=== PATIENT | female | born 1950 | race American Indian/Alaskan Native ===

== ENCOUNTER 2017-04-14 13:43 | Emergency (ER) | payer MEDICARE ==
[2017-04-14 16:19] VITALS: BP 168/71
== END 2017-04-15 05:17 | disposition left against medical advice (07) ==
LOC: ED 13:43
DX: Z53.21 Procedure and treatment not carried out due to patient leaving prior to being seen by health care provider (principal)

== ENCOUNTER 2018-09-24 09:28 | Day surgery (SDC) | payer MEDICARE ==
[~2018-09-24 09:28] MED LIST: ANCEF/STERILE WATER 2 GM/20 ML 2 GM/20 ML SYRINGE IV SCH; ceFAZolin 2 GM in NACL 0.9% 100 ML IV ONE
[2018-09-24] MEDS ORDERED: VERSED ONE (10:49)
[2018-09-24] MEDS ORDERED: NEURONTIN ONE (10:49)
[2018-09-24] MEDS ORDERED: LACTATED RINGERS 1,000 ML IV SCH (11:00)
[2018-09-24] MEDS ORDERED: DECADRON ONE (11:58)
[2018-09-24] MEDS ORDERED: ZEMURON IV ONE (11:58)
[2018-09-24] MEDS ORDERED: DIPRIVAN 10 MG/ML IV ONE (11:58)
[2018-09-24] MEDS ORDERED: ZOFRAN ONE (11:58)
[2018-09-24] MEDS ORDERED: XYLOCAINE CARDIAC IV ONE (11:58)
[2018-09-24] MEDS ORDERED: SUBLIMAZE ONE (12:07)
[2018-09-24] MEDS ORDERED: XYLOCAINE 1% 20 mL ONE (12:18)
[2018-09-24] MEDS ORDERED: MARCAINE 0.5% INFILTRATI ONE ×2 (12:18→13:20)
[2018-09-24] MEDS ORDERED: ROBINUL ONE ×2 (12:58→13:55)
[2018-09-24] MEDS ORDERED: XYLOCAINE 1% 20 mL INFILTRATI ONE (13:20)
[2018-09-24] MEDS ORDERED: WATER FOR IRRIG STERILE IR ONE (13:22)
[2018-09-24] MEDS ORDERED: BLOXIVERZ ONE (13:55)
--- NOTE | 2018-09-24 14:19 | Short Stay Summary ---
Short Stay Documentation Date of service: 09/24/18 - History Principal diagnosis: symptomatic cholelithiasis, hx pancreatitis H&P: obtained from office - Allergies and Medications Current Medications: Allergies No Known Allergies Allergy (Verified 09/16/18 10:27) Home Medications Medication Instructions Recorded Confirmed Last Taken Type Atorvastatin Calcium [Lipitor] 10 mg PO DAILY 09/16/18 09/16/18 09/23/18 History Clopidogrel Bisulfate [Clopidogrel] 75 mg PO DAILY 09/16/18 09/24/18 09/10/18 History Ferrous Sulfate [Feosol] 325 mg PO QDAY 09/16/18 09/16/18 09/23/18 History Lisinopril/Hydrochlorothiazide 1 each PO DAILY 09/16/18 09/24/18 09/24/18 07:00 History [Zestoretic 10-12.5 mg Tablet] Meloxicam 15 mg PO DAILY 09/16/18 09/16/18 09/23/18 History amLODIPine [Norvasc] 10 mg PO DAILY 09/16/18 09/16/18 09/23/18 History glipiZIDE [glipiZIDE XL] 10 mg PO DAILY 09/16/18 09/16/18 09/23/18 History Active Medications Cefazolin Sodium (Ancef/Sterile Water 2 Gm/20 Ml) 2 gm in 20 mls @ 60 mls/hr IV PREOP ILENE Stop: 09/24/18 23:59 Lactated Ringer's (Lactated Ringers) 1,000 mls @ 100 mls/hr IV DIRECT ILENE Last Admin: 09/24/18 11:10 Dose: 100 mls/hr Documented by: - Brief post op/procedure progress note Date of procedure: 09/24/18 Pre-op diagnosis: calculus of the gallbladder without cholecystitis or obstruction Post-op diagnosis: same Procedure: robotic assisted cholecystectomy Anesthesia: GETA, local Findings: cholelithiasis, adhesions from omentum to gallbladder Surgeon: EMIL GAVIN Estimated blood loss: minimal Pathology: list (gallbladder) Specimen disposition: to lab Condition: stable - Hospital course Hospital course: Pt observed in PACU and discharged to home in stable condition when criteria met - Disposition Condition at discharge: Good Disposition: DC-01 TO HOME OR SELFCARE Short Stay Discharge Plan Activity: other (no driving if taking prescription pain medications, no heavy lifting) Diet: low fat Wound: open to air Additional Instructions: SEE PRINTED DISCHARGE INSTRUCTIONS RESUME PLAVIX IN 2 DAYS Follow up with: EDILIA EVANS MD [Primary Care Provider] - 7 Days EMIL GAVIN DO [Staff Physician] - 14 Days Prescriptions: HYDROcodone/APAP 5-325 [[place] 5/325] 1 each PO Q6HR PRN #20 tablet PRN Reason: Pain
[2018-09-24 16:44] VITALS: BP 142/75
--- NOTE | 2018-09-24 17:39 | Operative Report ---
PREOPERATIVE DIAGNOSIS: Calculus of gallbladder without cholecystitis without obstruction. POSTOPERATIVE DIAGNOSIS: Calculus of gallbladder without cholecystitis without obstruction. PROCEDURE: Robotic-assisted cholecystectomy. ANESTHESIA: General endotracheal anesthesia, local. FINDINGS: Cholelithiasis, adhesions from omentum to gallbladder. SURGEON: Smitha Mendes DO ESTIMATED BLOOD LOSS: Minimal. PATHOLOGY: Gallbladder. SPECIMEN DISPOSITION: To lab. CONDITION: Stable. HISTORY OF PRESENT ILLNESS AND INDICATION: The patient is a 68-year-old female, who presented to the surgery office as a referral from Gastroenterology for evaluation of gallstones. The patient had been complaining of intermittent right upper quadrant and epigastric abdominal pain for many years. She had been hospitalized in the past for pancreatitis secondary to gallstones; however, the gallbladder was not addressed. The patient has had a negative GI workup thus far and is only remarkable for gallstones. Therefore, cholecystectomy was recommended. All risks, benefits, alternatives of surgery were discussed with the patient and questions answered. The robotic, laparoscopic, open approaches were all discussed. Consent was obtained. PROCEDURE IN DETAIL: The patient was identified in the preoperative area, taken back to the operating room and placed on the operating table in supine position. After anesthesia was induced, bilateral arms were tucked with all bony prominences padded appropriately. Abdomen was then prepped and draped in the usual sterile fashion. Timeout was performed. Local anesthetic was infiltrated into all skin incision sites. A 12 mm incision was made superior to the umbilicus through which a Veress needle was inserted. The Veress needle positioning was confirmed using the saline drop test. The abdomen was then insufflated to 50 mmHg. Once the abdomen was insufflated, the Veress needle was removed and a 12 mm Optiview balloon trocar was placed through this incision. The abdomen was inspected. There was no underlying injury to any of the abdominal structures. The patient was placed in reverse Trendelenburg and tilted to the left. The gallbladder was visualized in the right upper quadrant. An additional 8 mm left upper quadrant robotic trocar was placed under direct visualization. The gallbladder was grasped and there were adhesions from the omentum to the gallbladder visualized. The two additional 8 mm robotic trocars were then placed in the right mid and right lateral abdomen. This was done under direct visualization. A Ray-Elda was placed through the 12 mm port into the abdomen. The robot was then docked. The camera was installed and a Maryland was placed in arm #1, a Cadiere grasper in arm #2 and ProGrasp in arm #3. All instruments were advanced under direct visualization. The surgeon was then transferred to the console. The gallbladder was grasped by the fundus and lifted cephalad. The omental adhesions to the gallbladder were taken down using electrocautery. Once all of the adhesions were taken down, the neck of the gallbladder was visualized. The infundibulum of the gallbladder was grasped and retracted laterally. Cystic duct and artery were then carefully skeletonized using the Maryland dissector. The lateral and medial peritoneal reflections of the gallbladder were also dissected using robotic monopolar scissors. Once the critical view of safety was obtained and the cystic artery and duct were seen at the only two structures entering the gallbladder, the Hem-o-yessi clips were placed on both structures. Two clips were placed on the proximal aspect of the cystic duct and cystic artery respectively and 1 distally on cystic artery and cystic duct respectively. Both structures were transected in between the clips using robotic scissors. Gallbladder was then dissected off the liver bed using robotic monopolar scissors. The gallbladder was placed in the right upper quadrant and the gallbladder fossa was inspected for hemostasis. Hemostasis was achieved using electrocautery. The clips were visualized and intact. There was no bleeding or bile leakage. The robot was then undocked and the surgeon scrubbed back in. The remainder of the procedure was performed laparoscopically. The gallbladder was placed into an EndoCatch bag and removed through the 12 mm port. The Ray-Elda was also removed from the abdomen via the 12 mm port. The gallbladder fossa was once again visualized after the patient was placed into neutral position and there was no bleeding or bile leakage in this area. The 12 mm port fascia was closed with interrupted 0 vicryl suture using the Delmar Gil device. The remaining ports were then removed under direct visualization and the abdomen desufflated. The skin was once again infiltrated with local anesthetic and the skin incisions closed with 4-0 Monocryl subcuticular stitches and skin glue. The gallbladder was examined on the back table and there was dark red backbleeding from the cystic artery stump and there was bile coming from the cystic duct. The cystic duct with only tubular structure seen entering the gallbladder. There were stones and bile in the gallbladder. At the end of the case, all sponge, instrument and sharp counts were correct x 2. The patient was awoken from anesthesia, extubated, and taken to PACU in stable condition. JOB# [id number] VELIA/CHELSEY CERVANTES
== END 2018-09-24 16:45 | disposition home or self-care (01) ==
LOC: OR 09:28
PROVIDERS: ATTEND Surgery
DX: K80.10 Calculus of gallbladder with chronic cholecystitis without obstruction (principal); I25.10 Atherosclerotic heart disease of native coronary artery without angina pectoris; E78.00 Pure hypercholesterolemia, unspecified; I10 Essential (primary) hypertension; E11.51 Type 2 diabetes mellitus with diabetic peripheral angiopathy without gangrene; E78.5 Hyperlipidemia, unspecified; Z80.1 Family history of malignant neoplasm of trachea, bronchus and lung; Z98.890 Other specified postprocedural states; Z79.899 Other long term (current) drug therapy; Z79.01 Long term (current) use of anticoagulants; Z90.710 Acquired absence of both cervix and uterus; Z98.891 History of uterine scar from previous surgery
CPT/HCPCS: 36415; 47562; 82962; 84132; 88304; 93005; 93010; J0690; J1100; J2001; J2250; J2405; J2704; J2710; J3010; J7120

== ENCOUNTER 2019-04-26 09:34 | Outpatient (CLI) | payer MEDICARE ==
--- NOTE | 2019-04-28 11:30 | Mammography Report ---
DIGITAL SCREENING MAMMOGRAM WITH CAD, 04/26/2019 INDICATION: Routine screening mammography. TECHNIQUE: Digital bilateral 2D mammography was obtained in the craniocaudal and mediolateral obliq ue projections. This examination was interpreted with the benefit of Computer-Aided Detection analysi s. COMPARISON: 07/01/2013 FINDINGS: Breast Density: The breasts are almost entirely fatty. There is no evidence of dominant mass, suspicious calcifications or architectural distortion in eithe r breast. IMPRESSION: No mammographic evidence of malignancy. Follow up recommendation: Routine yearly BI-RADS Category 1: Negative. A "normal" or negative report should not discourage follow up or biopsy of a clinically significant f inding. A written summary of these findings will be mailed to the patient. The patient will be entered into a mammography reporting system which will generate a reminder letter for the patient's next appointmen t at the appropriate interval. The [employer] recommends yearly mammograms starting at age 40 and continuing as l dev as a woman is in good health. Breast MRI is recommended for women with an approximate 20-25% or greater lifetime risk of breast cancer, including women with a strong family history of breast or ova beto cancer or who have been treated for Hodgkin's disease. Signer Name: Rafael Cross MD Signed: 04/28/2019 11:26 AM Workstation Name: [id number]
== END 2019-04-26 09:35 | disposition home or self-care (01) ==
LOC: MAMMO 09:34
PROVIDERS: ATTEND Family Medicine
DX: Z12.31 Encounter for screening mammogram for malignant neoplasm of breast (principal); I10 Essential (primary) hypertension; I25.10 Atherosclerotic heart disease of native coronary artery without angina pectoris; Z90.710 Acquired absence of both cervix and uterus
CPT/HCPCS: 77067